=== PATIENT | male | born 1980 | race Two or more races ===

== ENCOUNTER 2017-08-01 17:13 | Emergency (ER) | payer OTHER ==
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
[2017-08-01 18:25] VITALS: BP 138/88
== END 2017-08-01 18:25 | disposition home or self-care (01) ==
DX: S02.40FA Zygomatic fracture, left side, initial encounter for closed fracture (principal); F17.200 Nicotine dependence, unspecified, uncomplicated; W22.8XXA Striking against or struck by other objects, initial encounter; Y92.69 Other specified industrial and construction area as the place of occurrence of the external cause; Y99.0 Civilian activity done for income or pay